=== PATIENT | male | born 1975 | race Hispanic/Latino ===

== ENCOUNTER 2018-12-15 09:44 | Emergency (ER) | payer SELFPAY ==
[~2018-12-15] VITALS: Ht 162.6 cm; Wt 80.0 kg
[2018-12-15] MEDS ORDERED: IMODIUM2 MG PO (13:47)
[2018-12-15 14:14] VITALS: BP 136/61
== END 2018-12-15 14:14 | disposition home or self-care (01) | DRG 392 ==
LOC: ED 09:44
DX: K52.9 Noninfective gastroenteritis and colitis, unspecified (principal); R50.9 Fever, unspecified; R19.7 Diarrhea, unspecified; R11.2 Nausea with vomiting, unspecified; R51 Headache